=== PATIENT | male | born 1950 | race Caucasian/White ===

== ENCOUNTER 2022-09-09 14:36 | Inpatient (IN) | payer BC, OTHER ==
[~2022-09-09] VITALS: Ht 172.7 cm; Wt 67.6 kg
[2022-09-09 14:47] VITALS: BP_SYST 105
--- NOTE | 2022-09-09 15:38 | NUR ---
Patient to ER bed 01 to gown for evaluation. Side rails up. Report given to felicitas ORTEGA.
--- NOTE | 2022-09-09 15:42 | NUR ---
Note estrellita in EDM - 09/09/22 at 1610 by [email or web address] Pt was brought in by family member c/o weakness, constipation, N/V since thursday. Pt states he has also experienced loss of appetite times 3 days. Pt has hx of rt meniscus tear repair surgery
--- NOTE | 2022-09-09 15:42 | NUR ---
Pt was brought in by family member c/o weakness, constipation, N/V since thursday. Pt states he has also experienced loss of appetite times 3 days. Pt has hx of rt meniscus tear repair surgery. Denies hx of heart attack or stroke. Denies alcohol, drug or tobacco use. Patient is A&Ox4, calm and cooperative. Slow to answer. Care will be provided as ordered.
--- NOTE | 2022-09-09 16:10 | NUR ---
ER Dr. Briscoe at bedside examining patient.
[2022-09-09] MEDS ORDERED: LACTULOSE 20 GM/30 ML UDC PO ONE (16:15)
[2022-09-09] MEDS ORDERED: DOCUSATE SODIUM 100 MG CAPSULE PO ONE (16:15)
[2022-09-09] MEDS ORDERED: NACL 0.9% 1,000 ML IV ONE (16:15)
[2022-09-09] MEDS ORDERED: POLYETHYLENE GLYCOL 3350, 17 GM/ POWD.PACK PO ONE (16:15)
[2022-09-09 16:46] LABS: BASOPHILS # (AUTO) 0.1 K/uL (0.0-0.2); BASOPHILS % (AUTO) 0.9 % (0.0-2.0); EOSINOPHILS % (AUTO) 0.6 % (0.0-4.0); HEMATOCRIT 24.5 % (36-54); HEMOGLOBIN 8.6 g/dL (14.0-18.0); LYMPHOCYTES # (AUTO) 0.6 K/uL (1.0-5.5); LYMPHOCYTES % (AUTO) 8.5 % (20.5-51.5); MEAN CORPUSCULAR HEMOGLOBIN 34 pg (27-31); MEAN CORPUSCULAR HGB CONC 35 % (32-36); MEAN CORPUSCULAR VOLUME 96 fL (79.0-98.0); MONOCYTES # (AUTO) 0.8 K/uL (0.0-1.0); MONOCYTES % (AUTO) 11.2 % (1.7-9.3); NEUTROPHILS # (AUTO) 5.4 K/uL (1.8-7.7); NEUTROPHILS % (AUTO) 78.8 % (40.0-70.0); PLATELET COUNT (AUTO) 325 K/uL (130-430); RED BLOOD CELL COUNT(AUTO) 2.56 MIL/uL (4.2-6.2); RED CELL DISTRIBUTION WIDTH 14.3 % (9.0-15.0); WHITE BLOOD COUNT (AUTO) 6.9 K/uL (4.8-10.8)
[2022-09-09 16:53] LABS: ANION GAP 4 (5-15); CALCIUM 9.3 mg/dL (8.4-11.0); CHLORIDE 100 mmol/L (98-107); GLUCOSE 128 mg/dL (70-99); UREA NITROGEN, BLOOD 15 mg/dL (8-21)
[2022-09-09 17:01] LABS: ALANINE AMINOTRANSFERASE 51 U/L (12-78); ALBUMIN 3.4 g/dL (3.4-4.8); ASPARTATE AMINOTRANSFERASE 30 U/L (10-37); TOTAL BILIRUBIN 0.2 mg/dL (0.0-1.0)
[2022-09-09 17:04] LABS: GFR AFRICAN AMERICAN 32 mL/min (>90)
[2022-09-09] MEDS ORDERED: PANTOPRAZOLE SODIUM 80 MG in NS 100 ML IV ONE (18:15)
[2022-09-09] MEDS ORDERED: PANTOPRAZOLE SODIUM 40 MG in NS 50 ML IV ONE (18:15)
[2022-09-09] MEDS ORDERED: cefTRIAXone 1 GM IVPB PREMIX 50 ML IV ONE (18:15)
--- NOTE | 2022-09-09 19:30 | NUR ---
Pt resting in bed awake and speaking with brother at bedside. Pt A&Ox4, and simple following commands. VSS.
[2022-09-09 19:34] LABS: INR 0.9 (0.80-1.20); PROTHROMBIN TIME 9.3 SECS (9.5-12.5)
--- NOTE | 2022-09-09 20:00 | NUR ---
Pt provided hygiene care in bed for comfort.
[2022-09-09] MEDS ORDERED: PANTOPRAZOLE SODIUM 40 MG/VIAL (PROTONIX) ONE ×2 (20:18→22:06)
--- NOTE | 2022-09-09 20:40 | NUR ---
Admit bed requested Patient will be admitted to care of . Admitted to TELE unit. Diagnosis GI BLEED Inpatient (Yes or No) YES Observation (Yes or No) NO Orientation concerns or request close to nursing station (Yes or No) NO Covid Status NEGATIVE On vent or bipap NO Isolation requirements NO Needs a sitter NO From Home (Yes or if No enter name of facility) YES Requires Dialysis (Yes or No) NO Med Rec Completed (Yes of No) PENDING
[2022-09-09 22:13] LABS: BILIRUBIN,URINE NEGATIVE (NEGATIVE); BLOOD, URINE NEGATIVE (NEGATIVE); CLARITY/URINE CLEAR (CLEAR); COLOR,URINE YELLOW (YELLOW); GLUCOSE,URINE NEGATIVE (NEGATIVE); KETONES,URINE NEGATIVE (NEGATIVE); LEUKOCYTE ESTERASE ,URINE NEGATIVE (NEGATIVE); NITRITE, URINE NEGATIVE (NEGATIVE); PH,URINE 7.5 (5.0-8.0); PROTEIN URINE NEGATIVE (NEGATIVE); UROBILINOGEN,URINE 0.2 (0.2-1.0)
--- NOTE | 2022-09-09 22:30 | NUR ---
Patient will be admitted to care of Dr. Suarez. Admitted to TELE unit. Will go to room 117B. Belongings list completed. Complete and up to date summary report printed. SBAR report given to Lalitha RN at bedside with opportunity for questions.
[2022-09-10] VITALS: BP_SYST 152
--- NOTE | 2022-09-10 02:00 | NUR ---
ADMIT PT ADMITTED FORM ED. PT C/C WAS CONSTIPATION AND IN ED FECAL DISIMPACTION WAS COMPLETED AND WITH SUCCESS. PT A0X4 AND ABLE TO MEET ALL HIS NEEDS. PT ON ROOM AIR RESPIRATIONS ARE EVEN AND NON LABORED. PT HAS IV INFUSING WITH NO COMPLAINTS. BED IN LOW AND LOCK PATIENT, CALL LIGHT WITHIN REACH ALL SAFETY MEASURES IN PLACE. WILL CONTINUE TO MONITOR
--- NOTE | 2022-09-10 02:30 | NUR ---
NPO PT HAS BEEN NPO SINCE MIDNIGHT PER MD ORDER. EXPLAINED TO PT MAY HAVE POSSIBLE TEST OR PROCEDURE
--- NOTE | 2022-09-10 04:53 | NUR ---
CONSULTATION PAGED/CALLED Reason for Consultation: GI BLEED Person Who was Notified: GLENNA Consulting Physician: KARLEE MINE ANALYST FOR [employer] Audit Intern Specialty: GI Ordering Physician: ANGELIA
--- NOTE | 2022-09-10 05:00 | NUR ---
BRUISE PT HAS LARGE BRUISE ONT HE RIGHT LEG THAT CONTINUES TO THE HIP. PICTURE TAKEN AND PLACED IN THE CHART
--- NOTE | 2022-09-10 07:30 | NUR ---
MORNING ROUNDS: PATIENT AWAKE ,LYING ON THE BED. NPO MAINTAINED. WITH BIG DARK DISCOLORATION AT HIS LEFT THIGH NOTED. CALL LIGHT WITH IN REACH. BED LOCKED AT LOWEST POSITION. NOT IN ANY DISTRESS.
[2022-09-10 07:45] LABS: BASOPHILS # (AUTO) 0.2 K/uL (0.0-0.2); BASOPHILS % (AUTO) 2.6 % (0.0-2.0); EOSINOPHILS # (AUTO) 0.1 K/uL (0.0-0.4); EOSINOPHILS % (AUTO) 1.8 % (0.0-4.0); HEMATOCRIT 23.5 % (36-54); HEMOGLOBIN 8.4 g/dL (14.0-18.0); LYMPHOCYTES # (AUTO) 0.8 K/uL (1.0-5.5); LYMPHOCYTES % (AUTO) 12.9 % (20.5-51.5); MEAN CORPUSCULAR HEMOGLOBIN 35 pg (27-31); MEAN CORPUSCULAR HGB CONC 36 % (32-36); MEAN CORPUSCULAR VOLUME 97 fL (79.0-98.0); MONOCYTES # (AUTO) 0.8 K/uL (0.0-1.0); MONOCYTES % (AUTO) 12.9 % (1.7-9.3); NEUTROPHILS # (AUTO) 4.5 K/uL (1.8-7.7); NEUTROPHILS % (AUTO) 69.8 % (40.0-70.0); PLATELET COUNT (AUTO) 308 K/uL (130-430); RED BLOOD CELL COUNT(AUTO) 2.43 MIL/uL (4.2-6.2); RED CELL DISTRIBUTION WIDTH 14.1 % (9.0-15.0); WHITE BLOOD COUNT (AUTO) 6.4 K/uL (4.8-10.8)
[2022-09-10 07:59] LABS: ALBUMIN 3.1 g/dL (3.4-4.8); CALCIUM 8.9 mg/dL (8.4-11.0); CREATININE 1.96 mg/dL (0.55-1.30); TOTAL BILIRUBIN 0.1 mg/dL (0.0-1.0)
[2022-09-10 08:27] VITALS: BP_SYST 134
[2022-09-10 11:12] VITALS: BP_SYST 141
--- NOTE | 2022-09-10 11:30 | NUR ---
RN ROUNDS: STABLE. NO COMPLAINED MADE.STARTED ON CLEAR LIQUID TOLERATED.
[2022-09-10] MEDS ORDERED: POTASSIUM CHLORIDE 20 MEQ TAB.PRT.SR PO ONE (14:30)
--- NOTE | 2022-09-10 15:30 | NUR ---
FAMILY AT THE BEDSIDE: DAUGHTER AT THE BEDSIDE. PATIENT CONSENTED FOR EGD AND COLONOSCOPY IN AM.
--- NOTE | 2022-09-10 15:51 | NUR ---
HIGH ALERT NOTE: Called back at his identified within the medical roster to verify physician authenticity.
[2022-09-10 17:00] VITALS: BP_SYST 136
[2022-09-10] MEDS ORDERED: BISACODYL 5 MG TABLET.DR (DULCOLAX) PO ONE (17:00)
[2022-09-10] MEDS ORDERED: GOLYTELY / COLYTE SOLUTION 4 LITERS PO ONE (18:00)
--- NOTE | 2022-09-10 18:43 | NUR ---
EVENING ROUNDS: PATIENT STARTED ON GOLYTELY AND TOOK IT SLOWLY.TOLERATED WELL. INSTRUCTED NOTHING BY MOUTH AFTER MIDNIGHT TONIGHT AND UNDERSTAND INSTRUCTIONS GIVEN.CALL LIGHT WITH IN REACH. BED LOCKED AT LOWEST POSITION. STABLE.
[2022-09-10 20:00] VITALS: BP_SYST 144
[2022-09-10] MEDS ORDERED: TEMAZEPAM 7.5 MG CAPSULE PO PRN (20:15)
[2022-09-10] MEDS: MINERAL OIL 30 ML UDC PO SCH (20:58)
--- NOTE | 2022-09-11 00:05 | NUR ---
PT ABLE TO DRINK MOST OF GO LYTELY BEFORE MIDNIGHT. PT CURRENTLY NPO. PT EDUCATED TO USE BSC
[2022-09-11 04:00] VITALS: BP_SYST 151
--- NOTE | 2022-09-11 05:34 | NUR ---
tap water enema preformed on pt. pt has been npo since midnight
--- NOTE | 2022-09-11 07:30 | NUR ---
MORNING ROUNDS: PATIENT AWAKE AND READY FOR EGD/COLONOSCOPY.NPO MAINTAINED. IV SALINE LOCK AT RIGHT FOREARM,INTACT.CALL LIGHT WITH IN REACH. BED LOCKED AT LOWEST POSITION. NO DISTRESS.
[2022-09-11 08:00] VITALS: BP_SYST 145
[2022-09-11 08:00] LABS: BASOPHILS # (AUTO) 0.1 K/uL (0.0-0.2); BASOPHILS % (AUTO) 1.1 % (0.0-2.0); EOSINOPHILS # (AUTO) 0.1 K/uL (0.0-0.4); EOSINOPHILS % (AUTO) 2.1 % (0.0-4.0); HEMATOCRIT 26.5 % (36-54); HEMOGLOBIN 9.2 g/dL (14.0-18.0); LYMPHOCYTES # (AUTO) 1.1 K/uL (1.0-5.5); LYMPHOCYTES % (AUTO) 16.4 % (20.5-51.5); MEAN CORPUSCULAR HEMOGLOBIN 34 pg (27-31); MEAN CORPUSCULAR HGB CONC 35 % (32-36); MEAN CORPUSCULAR VOLUME 97 fL (79.0-98.0); MONOCYTES % (AUTO) 15.6 % (1.7-9.3); NEUTROPHILS # (AUTO) 4.2 K/uL (1.8-7.7); NEUTROPHILS % (AUTO) 64.8 % (40.0-70.0); PLATELET COUNT (AUTO) 366 K/uL (130-430); RED BLOOD CELL COUNT(AUTO) 2.73 MIL/uL (4.2-6.2); RED CELL DISTRIBUTION WIDTH 14.2 % (9.0-15.0); WHITE BLOOD COUNT (AUTO) 6.4 K/uL (4.8-10.8)
[2022-09-11 08:04] LABS: CALCIUM 8.7 mg/dL (8.4-11.0); CREATININE 1.29 mg/dL (0.55-1.30)
[2022-09-11 08:09] LABS: TOTAL IRON BIND. CAPACITY 254 ug/dL (250-450)
--- NOTE | 2022-09-11 08:15 | NUR ---
CALLED GI: SPOKE WITH DR DESIR AND ASHOK TO PROCEED FOR EGD/COLONOSCOPY.
--- NOTE | 2022-09-11 08:25 | NUR ---
CRITICAL LAB: CALLED DR GALAN'S EXCHANGE FOR POTASSIUM=2.9 AND LEFT MESSAGE C/O EXCHANGE TIN.
--- NOTE | 2022-09-11 08:45 | NUR ---
GI LAB: PATIENT TO GI LAB VIA ROSS IN STABLE CONDITION.
[2022-09-11] MEDS: MINERAL OIL 30 ML UDC PO SCH (09:00)
[2022-09-11] MEDS ORDERED: MEPERIDINE 100 MG INJ. 100 MG/ML VIAL ONE (09:07)
[2022-09-11] MEDS ORDERED: MIDAZOLAM HCL 5 MG/5 ML VIAL ONE ×2 (09:07→10:14)
--- NOTE | 2022-09-11 10:44 | NUR ---
RN ROUNDING: PATIENT STILL AT GI LAB.
[2022-09-11] MEDS ORDERED: POTASSIUM CHLORIDE 20 MEQ TAB.PRT.SR PO ONE (10:45)
[2022-09-11] MEDS ORDERED: TEMAZEPAM 15 MG CAPSULE PO PRN (11:30)
[2022-09-11] MEDS ORDERED: PANTOPRAZOLE SODIUM 40 MG TAB PO ONE (11:30)
[2022-09-11 12:22] VITALS: BP_SYST 133
[2022-09-11] MEDS: KCL 20 mEq in 100 mL (PREMIX) 100 ML IV SCH ×2 (12:27→14:36)
--- NOTE | 2022-09-11 14:34 | NUR ---
Dc Telemetry: Downgrade patient to medical surgical unit as ordered.
[2022-09-11 16:00] VITALS: BP_SYST 127
[2022-09-11 17:36] VITALS: BP_SYST 127
[2022-09-11 17:44] LABS: BASOPHILS # (AUTO) 0.1 K/uL (0.0-0.2); BASOPHILS % (AUTO) 0.8 % (0.0-2.0); EOSINOPHILS # (AUTO) 0.2 K/uL (0.0-0.4); EOSINOPHILS % (AUTO) 3.1 % (0.0-4.0); HEMATOCRIT 24.5 % (36-54); HEMOGLOBIN 8.5 g/dL (14.0-18.0); LYMPHOCYTES # (AUTO) 1.2 K/uL (1.0-5.5); LYMPHOCYTES % (AUTO) 15.8 % (20.5-51.5); MEAN CORPUSCULAR HEMOGLOBIN 33 pg (27-31); MEAN CORPUSCULAR HGB CONC 35 % (32-36); MEAN CORPUSCULAR VOLUME 96 fL (79.0-98.0); MONOCYTES # (AUTO) 0.9 K/uL (0.0-1.0); MONOCYTES % (AUTO) 11.1 % (1.7-9.3); NEUTROPHILS # (AUTO) 5.4 K/uL (1.8-7.7); NEUTROPHILS % (AUTO) 69.2 % (40.0-70.0); PLATELET COUNT (AUTO) 366 K/uL (130-430); RED BLOOD CELL COUNT(AUTO) 2.55 MIL/uL (4.2-6.2); RED CELL DISTRIBUTION WIDTH 14.2 % (9.0-15.0); WHITE BLOOD COUNT (AUTO) 7.8 K/uL (4.8-10.8)
--- NOTE | 2022-09-11 18:10 | NUR ---
D/C Patient Patient given medication reconciliation form and D/C instructions. Exit Care provided. Patient verbalized understanding. MD discussed with patient the results and treatment provided. Ambulatory with steady gait for discharge to home. Patient in stable condition, ID band removed. IV catheter removed, intact and dressing applied, no active bleeding. Patient educated on pain management. All belongings sent with patient.Patient was accompanied home by his sister in stable condition.
[2022-09-12 08:06] LABS: FOLATE (FOLIC ACID) 16.3 ng/mL (>3.0)
[2022-09-12] MEDS ORDERED: PANTOPRAZOLE SODIUM 40 MG TAB PO SCH (09:00)
== END 2022-09-11 18:10 | disposition home or self-care (01) | DRG 380 ==
LOC: SED 14:36 → STU 20:37 → SMU 09-11 14:32
PROVIDERS: ADMIT Internal Medicine; ATTEND Internal Medicine
PROC: 0DB78ZX Excision of Stomach, Pylorus, Via Natural or Artificial Opening Endoscopic, Diagnostic (ICD-10-PCS; 2022-09-11)
PROC: 0DBE8ZZ Excision of Large Intestine, Via Natural or Artificial Opening Endoscopic (ICD-10-PCS; principal; 2022-09-11 13:00)
PROC: 0DB98ZX Excision of Duodenum, Via Natural or Artificial Opening Endoscopic, Diagnostic (ICD-10-PCS; 2022-09-11 13:00)
DX: K22.10 Ulcer of esophagus without bleeding (principal); N17.0 Acute kidney failure with tubular necrosis; D62 Acute posthemorrhagic anemia; K29.71 Gastritis, unspecified, with bleeding; K64.8 Other hemorrhoids; K63.5 Polyp of colon; F32.A Depression, unspecified; D50.9 Iron deficiency anemia, unspecified; K59.00 Constipation, unspecified; S70.10XA Contusion of unspecified thigh, initial encounter; X58.XXXA Exposure to other specified factors, initial encounter; Z20.822 Contact with and (suspected) exposure to COVID-19; K44.9 Diaphragmatic hernia without obstruction or gangrene; Y93.89 Activity, other specified; Y92.89 Other specified places as the place of occurrence of the external cause; Y99.8 Other external cause status
CPT/HCPCS: 36415; 43239; 45385; 71045; 73502; 74018; 80048; 80053; 81003; 82272; 82607; 82728; 82746; 83010; 83540; 83550; 83605; 84484; 85025; 85044; 85610-TC; 85730-TC; 87040; 87081; 88305; 88312; 88313; 93005; 96365; 96366; 96367; 99285; C9113; G0378; J0696; J2175; J2250; J3480; J7030

== ENCOUNTER 2022-12-05 14:41 | Emergency (ER) | payer OTHER ==
[~2022-12-05] VITALS: Ht 172.7 cm; Wt 72.6 kg
[2022-12-05 14:46] VITALS: BP_SYST 141
[2022-12-05 17:00] VITALS: BP_SYST 145
[2022-12-05 17:15] LABS: BASOPHILS % (AUTO) 1.7 % (0.0-2.0); EOSINOPHILS # (AUTO) 0.2 K/uL (0.0-0.4); EOSINOPHILS % (AUTO) 2.9 % (0.0-4.0); LYMPHOCYTES % (AUTO) 12.4 % (20.5-51.5); MEAN CORPUSCULAR HEMOGLOBIN 29 pg (27-31); MEAN CORPUSCULAR HGB CONC 32 % (32-36); MEAN CORPUSCULAR VOLUME 92 fL (79.0-98.0); MONOCYTES # (AUTO) 0.8 K/uL (0.0-1.0); MONOCYTES % (AUTO) 9.6 % (1.7-9.3); NEUTROPHILS # (AUTO) 6.1 K/uL (1.8-7.7); NEUTROPHILS % (AUTO) 73.4 % (40.0-70.0); RED BLOOD CELL COUNT(AUTO) 2.27 MIL/uL (4.2-6.2); RED CELL DISTRIBUTION WIDTH 21.2 % (9.0-15.0); WHITE BLOOD COUNT (AUTO) 8.3 K/uL (4.8-10.8)
--- NOTE | 2022-12-05 17:16 | NUR ---
Placed in room 4 . Placed on teletypesetter monitor, blood pressure machine and pulse oximeter. To gown for exam. Side rails up. Report given to .
[2022-12-05 17:19] LABS: ANION GAP 11 (5-15); CHLORIDE 103 mmol/L (98-107); CREATININE 1.11 mg/dL (0.55-1.30); GLUCOSE 88 mg/dL (70-99); UREA NITROGEN, BLOOD 17 mg/dL (8-21)
[2022-12-05 17:27] LABS: GFR AFRICAN AMERICAN 84 mL/min (>90); HEMOGLOBIN 6.7 g/dL (14.0-18.0)
--- NOTE | 2022-12-05 17:27 | NUR ---
DR SORENSEN AND PRIMARY RN INFORMED OF CRITICALS
[2022-12-05 17:29] LABS: PLATELET COUNT (AUTO) 898 K/uL (130-430)
[2022-12-05 17:30] LABS: ALANINE AMINOTRANSFERASE 22 U/L (12-78); ALBUMIN 2.7 g/dL (3.4-4.8); ASPARTATE AMINOTRANSFERASE 14 U/L (10-37); TOTAL BILIRUBIN 0.2 mg/dL (0.0-1.0)
[2022-12-05 17:32] LABS: BASOPHILS # (AUTO) 0.1 K/uL (0.0-0.2)
--- NOTE | 2022-12-05 17:40 | NUR ---
RECEIVED PT FROM SHANNON COELHO. ASSUMED CARE.
--- NOTE | 2022-12-05 18:05 | NUR ---
MADE DR GALAN AWARE THAT PATIENT IS LEAVING AMA
--- NOTE | 2022-12-05 18:17 | NUR ---
PT LEFT AMA. AMA FORM SIGNED BY PT AND DR. SORENSEN.
== END 2022-12-05 17:12 | disposition left against medical advice (07) ==
LOC: SED 14:41
DX: D64.9 Anemia, unspecified (principal); R53.1 Weakness; R06.00 Dyspnea, unspecified; R05.9 Cough, unspecified; Z79.899 Other long term (current) drug therapy
CPT/HCPCS: 36415; 70450-TC; 71045; 76376; 80053; 82550; 83880; 84484; 85025; 85610-TC; 85730-TC; 86886; 86900; 86901; 86920; 93005; 99285